=== PATIENT | female | born 1970 | race Native Hawaiian/Other Pacific Islander ===

== ENCOUNTER 2017-06-19 07:26 | Day surgery (SDC) | payer OTHER ==
[2017-06-17 13:01] VITALS: BMI 27.4
[2017-06-19] MEDS ORDERED: Propofol 10 mg/ml Inj (20 ML) ONE (08:30)
[2017-06-19] MEDS ORDERED: Lactated Ringer's 1,000 ML IV ONE ×3 (08:50→10:50)
[2017-06-19] MEDS ORDERED: cefOXitin IV 2 gm in Dextrose 2 GM/50 ML BAG IVPB ONE (08:51)
[2017-06-19] MEDS ORDERED: HYDROmorphone 0.5 mg/0.5 ml ISec IVP PRN (09:43)
--- NOTE | 2017-06-19 09:43 | PCM.SURG1 ---
Surgeon's Initial Post Op Note - Surgeon's Notes Surgeon: dr mcqueen Family Medicine Physician Assistant: none Type of Anesthesia: General LMA Anesthesia Administered By: dr johnson Pre-Operative Diagnosis: 47 yr with Abnormal uterine bleeding failed medical management Operative Findings: see the op reort Post-Operative Diagnosis: same Operation Performed: novasure/d&c,hysterscopy Specimen/Specimens Removed: ecc. emc Estimated Blood Loss: EBL {In ML}: 20 Blood Products Given: N/A Drains Used: No Drains Post-Op Condition: Good Date of Surgery/Procedure: 06/19/17 Time of Surgery/Procedure: 10:00
[2017-06-19] MEDS ORDERED: Lactated Ringer's 1,000 ML IV SCH (09:45)
[2017-06-19 13:12] VITALS: BP 112/66; PULSE 65; RESP 18; TEMP 97.5; O2SAT 100
--- NOTE | 2017-06-19 23:48 | OP ---
PROCEDURE DATE: PREOPERATIVE DIAGNOSES: A 47-year-old 3, para 3, with abnormal uterine bleeding and failed medical management. POSTOPERATIVE DIAGNOSES: A 47-year-old 3, para 3, with abnormal uterine bleeding and failed medical management. SURGEON: Warren Duarte MD WINDOWS MIGRATION TECHNICIAN: None. TYPE OF ANESTHESIA: General anesthesia with LMA. ANESTHESIA ADMINISTERED BY: Dr. Jenkins. COMPLICATIONS: None. PROCEDURE PERFORMED: NovaSure endometrial ablation, D and C and hysteroscopy. DESCRIPTION OF PROCEDURE: After informed consent was obtained, the patient was brought to the operating room, placed on the table where general anesthesia was given. Once the anesthesia was given, the patient was prepped and draped in the normal sterile fashion. Examination found the uterus to be 9- to 10-week size. No pelvic or adnexal masses. The cervical length was 4 cm. The uterine cavity was 6.5 cm. Then, the anterior lip of the cervix was grasped with a tenaculum, gentle dilatation of the cervix was done. After that, a hysteroscope was introduced, it was found to be a polypoid tissue. Sharp curettage of all the torres of the uterus was done. It was sent to the pathology. ECC was done and it was sent to the pathology too. After that, a NovaSure was introduced 3.5 cm after the close suction. It was enabled, this was done for 80 seconds. NovaSure was done for 80 seconds. No complications. After it was completed, hysteroscope was removed, pictures were taken . The patient tolerated the procedure well. Lap, sponge, and instrument counts were correct x2. The patient was sent home on Motrin and Keflex. The patient will follow up with Dr. Duarte in one week. Warren Duarte MD
== END 2017-06-19 13:10 | disposition home or self-care (01) ==
LOC: C.SDS 07:26
PROVIDERS: ATTEND Obstetrics & Gynecology
DX: N93.9 Abnormal uterine and vaginal bleeding, unspecified (principal)
CPT/HCPCS: 58563; 88305; J0694; J1170; J2704; J3010; J7120